=== PATIENT | female | born 1990 | race Asian ===

== ENCOUNTER 2021-05-28 11:19 | Emergency (ER) | payer OTHER ==
[~2021-05-28] VITALS: Ht 175.3 cm; Wt 108.9 kg
[2021-05-28 11:26] VITALS: TEMP 99.4
[2021-05-28 12:11] LABS: POTASSIUM 4.1 mmol/L (3.6-5.2)
[2021-05-28 13:57] VITALS: BP 104/49
== END 2021-05-28 13:58 | disposition home or self-care (01) ==
LOC: ED 11:19
PROVIDERS: Family Medicine
DX: S00.83XA Contusion of other part of head, initial encounter (principal); S20.212A Contusion of left front wall of thorax, initial encounter; S70.02XA Contusion of left hip, initial encounter; S00.511A Abrasion of lip, initial encounter; W01.198A Fall on same level from slipping, tripping and stumbling with subsequent striking against other object, initial encounter; Y92.098 Other place in other non-institutional residence as the place of occurrence of the external cause
CPT/HCPCS: 80053; 80320; 90715; 96372; 99283; J1885